=== PATIENT | female | born 1940 | race Caucasian/White ===

== ENCOUNTER → 2019-09-03 | Outpatient (CLI) | payer MEDICARE ==
--- NOTE | 2019-09-03 22:21 | MR ---
EXAMINATION TYPE: MR iac wo/w con DATE OF EXAM: 09/03/2019 COMPARISON: None HISTORY: Hearing loss CONTRAST: Standard multiplanar, multisequence MRI departmental protocol utilizing 6.5 mL intravenous Gadavist g adolinium contrast. There is some cerebral cortical atrophy. There is no mass effect nor midline shift. There is no sign of intracranial hemorrhage. Diffusion images show no evidence of cortical infarct. There is some patc hy increased signal within the central ynf. This area measures 1.5 cm. There is 4 mm focus of increa sed signal in the left anterior internal capsule on the FLAIR images. Corpus callosum is intact. Ther e is mild thinning of the corpus callosum. Sella turcica is intact. There is good visualization of the acoustic nerve and vestibular nerves. There is no sign of cerebell opontine angle mass. Internal auditory canals are symmetric. There is no pathologic enhancement. Ther e is normal contrast opacification of the venous sinuses. There is arterial flow in the distal verteb ral arteries and the basilar artery. IMPRESSION: Negative MR scan of the posterior fossa. I do not see a cause for hearing loss. Mild cerebral atrophy .
== END | disposition home or self-care (01) ==
LOC: RADMRIMAIN 09:58
PROVIDERS: ATTEND Otolaryngology
DX: G31.9 Degenerative disease of nervous system, unspecified (principal); H91.90 Unspecified hearing loss, unspecified ear
CPT/HCPCS: 70553; A9585